=== PATIENT | female | born 1990 | race African-American/Black ===

== ENCOUNTER 2018-09-06 13:45 | Emergency (ER) | payer SELFPAY ==
[~2018-09-06] VITALS: Ht 175.3 cm; Wt 61.2 kg
[2018-09-06 13:45] VITALS: BP_SYST 149
--- NOTE | 2018-09-06 13:50 | NUR ---
Placed in room 7. Side rails up x1. PATIENT SITING UP ON BED. AAOx4. RESPIRATIONS EVEN AND UNLABORED. NO SOB. SPEAKING FULL SENTENCES. DENIES OF ANY CHEST PAIN. PT WITH C/O SORE THROAT x4 DAYS. PT STATES THAT THE SORE THROAT OCCURRED AFTER VOMITING ON TUESDAY. PT STATES, "I WAS DRINKING ON TUESDAY AND WAS [place] ON TUESDAY. THAT'S WHEN I WAS VOMITING." VOMITING HAS SUBSIDED. PT ALSO WITH C/O BILATERAL EAR FEELING CLOGGED. NO DIZZINESS. REST AND RELAXATION ENCOURAGED. PT IN NO ACUTE DISTRESS. AWAITING MD ORDERS.
--- NOTE | 2018-09-06 14:10 | NUR ---
GISELL MORALES FINAL INSPECTOR PAPER at bedside examining patient.
[2018-09-06] MEDS ORDERED: MAG HYDROX/AL HYDROX/SIMETH 30 ML, LIDOCAINE VISCOUS 2% 15ML (PO) 10 ML, BELLADONNA ALK... PO ONE ×3 (14:15)
--- NOTE | 2018-09-06 14:30 | NUR ---
GI COCKTAIL ADMINISTERED. TOLE RATED WELL. PLEASE SEE EMAR FOR DETAILS.
--- NOTE | 2018-09-06 15:00 | NUR ---
PATIENT VERBALIZED NO RELIEF FROM THROAT PAIN. PAIN = 10/10. YAKOV MORALES MADE AWARE. NO NEW ORDERS GIVEN AT THIS TIME.
[2018-09-06] MEDS ORDERED: KETOROLAC TROMETHAMINE 60 MG/2 ML VIAL IM ONE (15:15)
--- NOTE | 2018-09-06 15:16 | NUR ---
TORADOL ADMINISTERED FOR THROAT PAIN = 02/22. TOLERATED WELL. PLEASE SEE EMAR FOR DETAILS.
[2018-09-06 15:40] VITALS: BP_SYST 138
--- NOTE | 2018-09-06 15:40 | NUR ---
Patient given written and verbal discharge instructions and verbalizes understanding. ER MD discussed with patient the results and treatment provided. Patient in stable condition. ID arm band removed. Rx of PREDNISONE AND OMEPRAZOLE given. Patient educated on pain management and to follow up with PMD. Pain Scale 6/10; TOLERABLE VERBALIZED. NO OBJECTIVE S/SX OF PAIN OBSERVED. Opportunity for questions provided and answered. Medication side effect fact sheet provided. PATIENT IN GOOD CONDITION AND IN NO ACUTE DISTRESS. PT NOTED WITH A STABLE GAIT.
== END 2018-09-06 15:40 | disposition home or self-care (01) ==
LOC: SED 13:45
DX: J02.8 Acute pharyngitis due to other specified organisms (principal); B97.89 Other viral agents as the cause of diseases classified elsewhere; K21.9 Gastro-esophageal reflux disease without esophagitis; R03.0 Elevated blood-pressure reading, without diagnosis of hypertension; F17.210 Nicotine dependence, cigarettes, uncomplicated; Z71.6 Tobacco abuse counseling
CPT/HCPCS: 36415; 86403; 87081; 96372; 99283; J1885; J2001

== ENCOUNTER 2019-08-26 07:19 | Emergency (ER) | payer BC ==
[~2019-08-26] VITALS: Ht 175.3 cm; Wt 63.5 kg
[2019-08-26 07:26] VITALS: BP_SYST 143
[2019-08-26 08:04] LABS: BASOPHILS # (AUTO) 0.1 K/uL (0.0-0.2); BASOPHILS % (AUTO) 0.7 % (0.0-2.0); EOSINOPHILS # (AUTO) 0.1 K/uL (0.0-0.4); EOSINOPHILS % (AUTO) 1.6 % (0.0-4.0); HEMATOCRIT 43.2 % (36-48); HEMOGLOBIN 14.5 g/dL (12.0-16.0); LYMPHOCYTES # (AUTO) 3.5 K/uL (1.0-5.5); LYMPHOCYTES % (AUTO) 46.8 % (20.5-51.5); MEAN CORPUSCULAR HEMOGLOBIN 33 pg (27-31); MEAN CORPUSCULAR HGB CONC 34 % (32-36); MEAN CORPUSCULAR VOLUME 99 fL (79.0-98.0); MONOCYTES # (AUTO) 0.6 K/uL (0.0-1.0); MONOCYTES % (AUTO) 8.3 % (1.7-9.3); NEUTROPHILS # (AUTO) 3.2 K/uL (1.8-7.7); NEUTROPHILS % (AUTO) 42.6 % (40.0-70.0); PLATELET COUNT (AUTO) 267 K/uL (130-430); RED BLOOD CELL COUNT(AUTO) 4.38 MIL/uL (4.2-6.2); RED CELL DISTRIBUTION WIDTH 13.2 % (9.0-15.0); WHITE BLOOD COUNT (AUTO) 7.4 K/uL (4.8-10.8)
[2019-08-26] MEDS: NACL 0.9% 1,000 ML IV ONE (08:09)
[2019-08-26 08:10] LABS: ANION GAP 11 (5-15); CALCIUM 8.8 mg/dL (8.4-11.0); CHLORIDE 96 mmol/L (98-107); CREATININE 0.81 mg/dL (0.55-1.30); GLUCOSE 89 mg/dL (70-99); POTASSIUM 3.7 mmol/L (3.5-5.1); SODIUM SERUM 135 mmol/L (136-145); UREA NITROGEN, BLOOD 14 mg/dL (8-21)
[2019-08-26] MEDS: ONDANSETRON HCL 4 MG/2 ML VIAL IVP ONE (08:10)
[2019-08-26] MEDS: MORPHINE 2 MG/ML INJ. SYRINGE IVP ONE (08:10)
[2019-08-26 08:12] LABS: GFR AFRICAN AMERICAN 109 mL/min (>90)
[2019-08-26] MEDS ORDERED: FOLIC ACID 1 MG, THIAMINE HCL 100 MG, MAGNESIUM SULFATE 1 GM, MVI 10 ML in NACL 0.9% 1,... IV ONE (08:15)
[2019-08-26 08:21] LABS: BARBITURATE, URINE NEGATIVE (NEG <=200); BENZODIAZEPINE, URINE NEGATIVE (NEG <=150); CANNABINOID, URINE POSITIVE (NEG <=50); COCAINE, URINE NEGATIVE (NEG <=150); METHAMPHETAMINES SCREEN,URINE POSITIVE (NEG <=500); OPIATE, URINE NEGATIVE (NEG <=100); PHENCYCLIDINE SCREEN,URINE NEGATIVE (NEG <=25); UR TRICYCLIC ANTIDEPRESSANTS NEGATIVE (NEG <=300); URINE AMPHETAMINE POSITIVE (NEG <=500); URINE METHADONE NEGATIVE (NEG <=200); URINE OXYCODONE SCREEN NEGATIVE (NEG <=100); URINE PROPOXYPHENE SCREEN NEGATIVE (NEG <=300)
[2019-08-26 08:32] LABS: ALANINE AMINOTRANSFERASE 33 U/L (12-78); ALBUMIN 4.5 g/dL (3.4-4.8); AMYLASE 629 U/L (0-100); ASPARTATE AMINOTRANSFERASE 33 U/L (10-37); LIPASE 70 U/L (73-393); TOTAL BILIRUBIN 1.7 mg/dL (0.0-1.0)
[2019-08-26 08:36] LABS: ACETAMINOPHEN < 1 ug/mL (1-30); ALCOHOL, BLOOD < 3 mg/dL (<10)
[2019-08-26] MEDS: FOLIC ACID 1 MG, MVI 10 ML in NACL 0.9% 1,000 ML IV ONE (08:52)
[2019-08-26] MEDS: THIAMINE HCL 100 MG, MAGNESIUM SULFATE 1 GM in NS 100 ML IV ONE (08:53)
[2019-08-26] MEDS: LIDOCAINE VISCOUS 2%, 15 ML UDC MM ONE (11:29)
[2019-08-26 12:53] VITALS: BP_SYST 125
== END 2019-08-26 12:55 | disposition home or self-care (01) ==
LOC: SED 07:19
DX: K29.20 Alcoholic gastritis without bleeding (principal); F10.10 Alcohol abuse, uncomplicated; K85.20 Alcohol induced acute pancreatitis without necrosis or infection; F12.10 Cannabis abuse, uncomplicated; F15.10 Other stimulant abuse, uncomplicated; K21.9 Gastro-esophageal reflux disease without esophagitis; F17.210 Nicotine dependence, cigarettes, uncomplicated; Y90.0 Blood alcohol level of less than 20 mg/100 ml
CPT/HCPCS: 36415; 80053; 80307; 81025; 82150; 83605; 83690; 85025; 87040; 96361; 96365; 96366; 96368; 96375; 99285; G0480; G0481; G0482; J2001; J2270; J2405; J3411; J3475; J3490; J7030; 99284